=== PATIENT | male | born 1960 | race Two or more races ===

== ENCOUNTER → 2024-10-05 | Day surgery (SDC) | payer OTHER ==
[~2024-10-05] VITALS: Ht 188 cm; Wt 90.7 kg
[~2024-10-05] MED LIST: ASPI81CH59 PO; ATOR20TA50 PO; HEPARIN SODIUM (PORCINE) 5000 UNITS/ML 1ML VIAL ONE; HYDROmorphone HCL 2 MG/ML VL/or syr IV PRN; HYDROmorphone HCL 2 MG/ML VL/or syr ONE; KETAMINE 50mg/ML 1ml syringe ONE; KETOROLAC TROMETH 30 MG/ML 1ML VIAL IV ONE; LIDOCAINE 1% INJ PF 5ML AMP ONE; METOCLOPRAMIDE HCL 5MG/ml INJ 2ml VIAL IV ONE; MIDAZOLAM HCL 2MG/2ML 2ml VIAL (1mg/ml) ONE; MORPHINE SULFATE 4 MG/ML SYR/VIAL IV PRN; MORPHINE SULFATE INJ 2 MG/ml SYRG IV PRN; OLME20TA53 PO; ONDANSETRON HCL 4 MG/2 ML VIAL ONE; PERCOT PO; PROPOFOL 10 MG/ML 20 ML IV ONE; SODIUM CHLORIDE LOCK 10 ML ONE; ceFAZolin 2 GM/D5W50ml 50 ML IV ONE; fentaNYL CITRATE 100 MCG/2 ML VL ONE
[2024-10-05] MEDS: HEPARIN SODIUM (PORCINE) 5000 UNITS/ML 1ML VIAL SC ONE (10:00)
[2024-10-05] MEDS: LIDOCAINE 1% HCL (LOCAL ANESTH.) INJ 20ML MDV ONE (11:50)
[2024-10-05] MEDS: BUPIVACAINE 0.5% MPF INJ 30ML SDV IJ ONE (12:30)
[2024-10-05 12:51] VITALS: TEMP 98.2; O2SAT 99
--- NOTE | 2024-10-05 13:12 | DVHOP ---
DATE OF SURGERY: 10/05/2024 PREOPERATIVE DIAGNOSIS: Left inguinal hernia. POSTOPERATIVE DIAGNOSES: Sliding left inguinal hernia and lipoma in spermatic cord. PROCEDURES: Left ilioinguinal nerve block, repair of left inguinal hernia with mesh, and excision of lipoma and spermatic cord. SURGEON: Trey Villanueva MD MANAGER UNDERWRITING: None ANESTHESIOLOGIST: Dr. Brooke. ANESTHESIA: General by means of laryngeal mask airway. INTRAOPERATIVE FINDINGS: * Sliding left inguinal hernia. * Completely obliterated inguinal floor. * Small lipoma of the spermatic cord. ESTIMATED BLOOD LOSS: Minimal. IV FLUIDS: Per anesthesia charting. URINE OUTPUT: Not recorded given a Hernandez catheter was not inserted. DRAINS: None IMPLANTS: * Extra large polypropylene plugs x 2. * Medium-sized polypropylene plug x 1 * Polypropylene patch. COMPLICATIONS: None other than difficult procedure given the above-mentioned intraoperative findings, adding complexity as well as time to an otherwise routine procedure. Procedure well tolerated and transferred to recovery room in stable condition. INDICATIONS FOR PROCEDURE: The patient is a 64-year-old male with a left inguinal hernia that was recommended to undergo repair. The procedure, risks, and benefits were explained in a detailed and extensive fashion. All of his questions were answered. He understood and agreed to proceed. DESCRIPTION OF PROCEDURE: The patient was met in the preoperative holding area where the left groin was marked indicating the correct site of the surgery. The patient confirmed correct location of the surgery. The patient was then transported to the operating room where he was placed in the dorsal decubitus position on the operating room table. Once adequate anesthesia was achieved, the abdomen and groins were widely clipped from all hair surrounding the surgical field. Then, he was widely prepped and draped in the usual sterile fashion. My attention was directed towards the left groin where a left ilioinguinal nerve block was performed using 1% lidocaine/0.5% Marcaine. A transverse left groin incision was made with a 15 blade. The dermis and subcutaneous tissue were incised to the level of external oblique aponeurosis using electrocautery. The external oblique aponeurosis was incised with a 15 blade. The incision was carried cephalad and caudally with Metzenbaum scissors without injury to underlying structures. The spermatic cord structures were dissected at the level of the pubic tubercle. The cremasteric fibers were dissected with electrocautery without injury to the spermatic cord structures. The patient was noted to have a small lipoma of the spermatic cord, which was dissected to the level of the internal ring and excised. It had been previously tied up with a 0 Vicryl tie. The excess was excised and discarded. A large indirect sliding hernia was identified. It was dissected from the spermatic cord structures without injury to either structure to the level of the internal ring. It was reduced. The patient was noted to have a completely obliterated inguinal floor. In order to repair the floor, extra large plugs x 2 were sutured together and placed in the preperitoneal space. An additional defect was noted caudally just above the pubic tubercle. A medium-sized plug was inserted into this location. All the plugs were fixated and imbricated using 0 PDS sutures to surrounding supportive structures. A polypropylene patch was placed in an onlay fashion secured to the shelving edge of the external oblique aponeurosis using several interrupted 0 PDS sutures. The spermatic cord was placed within the prefabricated slit of the mesh and the mesh was fixated medially to the transversus abdominis aponeurotic arch. The tails of the mesh were secured together with 0 PDS sutures, paying careful attention not to strangulate the spermatic cord structures. Of note, the ilioinguinal nerve was not identified, in spite of a careful thorough search. The external oblique aponeurosis was then closed with a running 3-0 Vicryl suture after confirming adequate hemostasis. The Josefina's layer was approximated with several interrupted 3-0 Vicryl sutures. The skin was closed with 4-0 Monocryl in a subcuticular fashion. The wounds were washed and dried. Sterile dressings were applied. The patient tolerated well the procedure. There were no complications. He was successfully extubated in the operating room and transferred to the recovery room in stable condition. Trey Villanueva MD [place] TID: [id number] RECEIPT: [id number]
[2024-10-05 13:40] VITALS: BP 118/71; PULSE 83; RESP 15; O2SAT 94
== END | disposition home or self-care (01) ==
LOC: SUR 09:38
DX: K40.90 Unilateral inguinal hernia, without obstruction or gangrene, not specified as recurrent (principal); D17.6 Benign lipomatous neoplasm of spermatic cord; I12.9 Hypertensive chronic kidney disease with stage 1 through stage 4 chronic kidney disease, or unspecified chronic kidney disease; N18.2 Chronic kidney disease, stage 2 (mild); E78.00 Pure hypercholesterolemia, unspecified; G89.29 Other chronic pain; E66.9 Obesity, unspecified; Z68.25 Body mass index [BMI] 25.0-25.9, adult; Z79.899 Other long term (current) drug therapy; Z98.1 Arthrodesis status; Z98.890 Other specified postprocedural states; Z87.891 Personal history of nicotine dependence
CPT/HCPCS: 49525; 86850; 86900; 86901; C1781; J0690; J1171; J1644; J2003; J2250; J2405; J2704; J3010; J3490